=== PATIENT | female | born 1960 | race American Indian/Alaskan Native ===

== ENCOUNTER 2017-11-04 11:03 | Day surgery (SDC) | payer BC ==
[2017-10-28 10:36] VITALS: BMI 35.7
[2017-11-04] MEDS ORDERED: Propofol 10 mg/ml Inj (20 ML) ONE ×2 (12:32→12:49)
[2017-11-04] MEDS ORDERED: Sodium Chloride 0.9% 1,000 ML IV SCH (13:30)
[2017-11-04 14:14] VITALS: BP 146/94; PULSE 79; RESP 19; TEMP 97.7; O2SAT 96
== END 2017-11-04 14:39 | disposition home or self-care (01) ==
LOC: ENDO 11:03
PROVIDERS: ATTEND Internal Medicine
DX: Z12.11 Encounter for screening for malignant neoplasm of colon (principal); K63.5 Polyp of colon; K64.8 Other hemorrhoids
CPT/HCPCS: 45380; 88305; J2001; J2704; J7040 ×2

== ENCOUNTER 2018-12-03 08:39 | Outpatient (CLI) | payer BC | END 2018-12-03 08:40 | disposition home or self-care (01) | LOC: RAD 08:40 ==